=== PATIENT | female | born 1975 | race Caucasian/White ===

== ENCOUNTER 2021-06-07 20:14 | Emergency (ER) | payer BC, SELFPAY ==
[2021-06-07 20:15] VITALS: BP 117/61; PULSE 111; RESP 30; TEMP 36.6; O2SAT 100; BMI 25.9
--- NOTE | 2021-06-07 20:38 | EKG12_ITS ---
Test Reason : Blood Pressure : / mmHG Vent. Rate : 079 BPM Atrial Rate : 079 BPM P-R Int : 130 ms QRS Dur : 096 ms QT Int : 438 ms P-R-T Axes : 079 075 065 degrees QTc Int : 502 ms Sinus rhythm with Premature atrial complexes Prolonged QT Abnormal ECG Confirmed by MARCOS SHARMA, ANAMARIA ([id number]), digital editor EDER ORTIZ ([id number]) on 06/10/2021 9:23:30 AM Referred By: MANSI Confirmed By:ANAMARIA RODRÍGUEZ MD
--- NOTE | 2021-06-07 20:39 | EDS_ITS ---
HPI History of Present Illness Chief Complaint: Anxiety Informant: patient Onset/Context/Timing Onset: Today Context: sudden, gradual and activity on onset (Driving) Timing: Continuous Quality: Positive for - (Feels like I cannot breathe) Current Severity: Moderate Maximum Severity: Moderate Worsened by: Nothing Relieved by: Nothing Associated Symptoms Negative for cough Chest Pain: Positive for - (I cannot breathe, and since I cannot breathe it is making my chest hurt) Narrative Narrative: Patient states she started not feeling well in general and then having trouble breathing today while she was driving to her son's sports event. She has never had this before. She states there is some soreness but she has hard time localizing it. She denies any symptoms of angina. She denies having a history of anxiety or anything today that should have caused her to have a panic attack. She was seen at the [place] [facility] for this and they did some testing and discharged her saying this is anxiety and so she came here because she is still very symptomatic. She denies any history of PE or DVT. No recent leg pain or swelling. She is having contractions of both of her hands, and feeling tingly and weak all 4 extremities symmetrically. She states earlier she felt like my body was dying. PE Risk Factors: Negative for Cancer, OCP + Smoking + > 35, Prior DVT or PE, Recent immobilization, Recent surgery and Recent travel Recent Illness/Hospitalization: No PFSH PFSH Medical History no medical history no medical history Home Medications ibuprofen 2 tab PO PRN PRN 03/01/17 [History Last Taken Unknown] pantoprazole 20 mg PO DAILY 03/01/17 [History Last Taken 03/04/17 05:00] ibuprofen 600 mg PO Q6H PRN #60 tab 03/04/17 [Rx Last Taken Unknown] nitrofurantoin monohyd/m-cryst 100 mg PO BID #6 cap 03/04/17 [Rx Last Taken Unknown] ondansetron HCl 4 mg PO Q6H PRN PRN #10 tab 03/04/17 [Rx Last Taken Unknown] oxycodone-acetaminophen 1 - 2 tab PO Q8 PRN #28 tab 03/04/17 [Rx Last Taken Unknown] Allergy/AdvReac Type Severity Reaction Status Date / Time azithromycin [From Zithromax] Allergy Hives Verified 06/07/21 20:17 Social History Smoking Status: Current every day smoker tobacco type: cigarettes ROS ROS ED Constitutional Constitutional ED: Denies chills or fever(s) Eyes Eyes: Denies change in vision or diplopia ENT ENT ED: Denies rhinorrhea or sore throat Cardiovascular Cardiovascular: Reports as per HPI and chest pain; Denies palpitations Respiratory/Chest Respiratory/Chest: Reports dyspnea; Denies cough Gastrointestinal Gastrointestinal: Denies abdominal pain, diarrhea, nausea or vomiting Genitourinary Genitourinary ED: Denies dysuria or hematuria Musculoskeletal Musculoskeletal: Denies back pain or neck pain Integumentary Denies abscess or rash Neurologic Neurologic: Reports as per HPI, paresthesias and weakness; Denies headache(s) Psychiatric Psychiatric: Denies anxiety or suicidal thoughts EXAM Physical Exam Const Vital Signs: 06/07/21 20:15 Temperature 97.8 F Temperature Source Temporal Pulse Rate 111 H Respiratory Rate 30 H Blood Pressure 117/61 Blood Pressure Mean 79 Pulse Ox 100 Oxygen Delivery Method Room Air Positive well nourished and well developed General Appearance ED: well developed and NAD HEENT Reports moist mucous membranes normocephalic and atraumatic Eyes PERRL and EOMs intact bilaterally Neck full ROM and supple Resp normal respiratory effort and clear to auscultation bilaterally Cardio regular rate, regular rhythm and no murmurs Rate: tachycardic GI non-tender and non-distended Auscultation: normoactive bowel sounds Palpation: soft Back/Spine no CVA tenderness General Back: other FROM Extremity normal to inspection Extremity Narrative: Fingers and hands are in carpal contractures and she is tremulous when she raises her arms which she can do without trouble General Extremety ED: Negative for edema, pulses abnormal or tenderness General Extremity: Negative for edema or pulses abnormal Neuro oriented x3, CN's II-XII intact bilaterally and no sensory deficits noted Sensorium / Orientation: awake and alert Motor Exam: strength 5/5 throughout Psych mental status grossly normal, thought process normal and cooperative Psych Narrative: Appears very anxious. Tachypneic and mildly tachycardic. Soft-spoken, closing her eyes for much of her history. Skin no rashes or lesions noted and no wounds MDM MDM MDM Narrative Medical decision making narrative: EKG, chest x-ray, troponin, D-dimer all normal/within normal limits. This includes her mediastinum on her chest x-ray. Her bicarb is low at 18, and her potassium is a little low at 3.2. Her anion gap is within normal limits. I obtained an ABG to help differentiate which acid-base disorder she has. I interpret this as an acute respiratory alkalosis with compensation. I discussed with critical care Dr. Guillaume. He agrees with this and since the patient has been having symptoms for more than half of the day, renal compensation could be seen in the context. The patient was having pain all over so before this conversation I treated her with Toradol and she was given IV fluids and observed. Afterwards, she felt much better and her breathing was back to normal and she did not appear anxious. Her tachycardia resolved, her carpal spasms resolved, and her tingling resolved. I do think there is a component of anxiety here, but I think it was a result of feeling dyspneic. Dr. Guillaume suggested vocal cord dysfunction in the differential that could cause someone to feel dyspneic and mimics asthma commonly. This can be worked up as an outpatient, and the patient is comfortable going home and following up with her doctor. Her hypokalemia is likely due to the alkalosis and will self-correct when her pH corrects so I do not think she needs to have potassium replacement at this time. Lab Data Attestation: I reviewed the patient's lab results. Labs: Laboratory Results - last 24 hr 06/07/21 06/07/21 06/07/21 20:45 20:47 20:47 WBC 10.2 RBC 4.40 Hgb 13.9 Hct 39.5 MCV 89.8 MCH 31.6 MCHC 35.2 RDW Std Deviation 41.4 RDW Coeff of Ninfa 12.5 Plt Count 275 MPV 9.2 Immature Gran % (Auto) 0.200 Neut % (Auto) 69.8 Lymph % (Auto) 24.7 [place] % (Auto) 4.9 Eos % (Auto) 0.2 Baso % (Auto) 0.2 Absolute Neuts (auto) 7.1 Absolute Lymphs (auto) 2.51 Nucleated RBC % 0 D-Dimer Quant (PE/DVT) < 0.27 L Sodium Potassium Chloride Carbon Dioxide Anion Gap BUN Creatinine Estim Creat Clear Calc Est GFR (MDRD) Af Amer Est GFR (MDRD) Non-Af BUN/Creatinine Ratio Glucose Calcium Troponin I High Sens Serum , Qual NEGATIVE 06/07/21 20:47 WBC RBC Hgb Hct MCV MCH MCHC RDW Std Deviation RDW Coeff of Ninfa Plt Count MPV Immature Gran % (Auto) Neut % (Auto) Lymph % (Auto) [place] % (Auto) Eos % (Auto) Baso % (Auto) Absolute Neuts (auto) Absolute Lymphs (auto) Nucleated RBC % D-Dimer Quant (PE/DVT) Sodium 139 Potassium 3.2 L Chloride 111 H Carbon Dioxide 18.0 L Anion Gap 10 BUN 12 Creatinine 0.81 Estim Creat Clear Calc 79.75 Est GFR (MDRD) Af Amer 99 Est GFR (MDRD) Non-Af 82 BUN/Creatinine Ratio 14.9 Glucose 107 H Calcium 8.4 L Troponin I High Sens 20 Serum , Qual ABG Data ABG results: ABG 06/07/21 22:06 Specimen Type ART pH 7.54 H Bicarbonate Actual 18.0 L Total CO2 19 Base Excess -5 L O2 Saturation 99 O2 % 21 ABG pCO2 21.1 L ABG pO2 100 Radiography Chest X-Ray - ED: 1 View, Read by ED Physician, Normal, Heart, Lungs, Mediast inum, Bony Structures and No Acute Disease Diagnostic Testing: Clinical Impression(s) from Imaging Studies Chest X-Ray 06/07/21 20:45 IMPRESSION: Normal x-ray examination of the chest. Electronically Signed: Elijah Vieira MD ([place]) at 21:03 EDT Reading Location ID and State: [facility] / [place] , Service support , EKG Initial EKG: Attestation: I personally reviewed and interpreted this EKG as follows: Interpretation: No Acute Injury Pattern and Sinus Arrythmia (Otherwise normal EKG) Discharge Plan Triage Chief Complaint: Anxiety ED Provider: Dax Chacon Dx/Rx/DC Orders Clinical Impression: Acute dyspnea, Acute respiratory alkalosis, Hypokalemia, Anxiety Instructions: ED Dyspnea Prescriptions: No Action pantoprazole 20 MG tablet 20 mg PO DAILY RF: 0 ibuprofen 200 MG tablet 2 tab PO PRN PRN (Reason: Pain) RF: 0 oxycodone-acetaminophen 1 TABLET tablet 1 - 2 tab PO Q8 PRN (Reason: Pain) Qty: 28 RF: 0 ibuprofen 600 MG tablet 600 mg PO Q6H PRN (Reason: Pain) Qty: 60 RF: 1 ondansetron HCl 4 MG tablet 4 mg PO Q6H PRN PRN (Reason: Nausea) Qty: 10 RF: 1 nitrofurantoin monohyd/m-cryst 100 MG capsule 100 mg PO BID Qty: 6 RF: 0 Primary Care Provider: Dewey Grey Referrals: Dewey Grey MD [Primary Care Provider] - 3-5 Days Disposition Disposition: Home, Self Care
--- NOTE | 2021-06-07 20:45 | RAD_ITS ---
STUDY: X-RAY CHEST REASON FOR EXAM: Female, 45 years old. PRESENTS WITH ANXIETY, HYPERVENTILATING, HANDS IFTIKHAR. PT HAD JUST BEEN DISCHARGED FROM [place] FOR ANXIETY TECHNIQUE: AP COMPARISON: None. FINDINGS: The lungs are clear and expanded. There is no demonstrated pleural abnormality. Normal size heart. Normal mediastinum and trini. Normal visualized pulmonary arteries. Normal visualized aortic arch and descending thoracic aorta. Normal visualized thoracic spine. Normal visualized ribs, clavicles, and shoulders. There is no demonstrated abnormality of the visualized soft tissue structures of the upper abdomen. RAD/Chest 1 View (Portable) IMPRESSION: Normal x-ray examination of the chest. Electronically Signed: Elijah Vieira MD ([place]) at 21:03 EDT ,
[2021-06-07 20:52] LABS: Absolute Lymphocyte Count 2.51 X10^3/uL (0.83-4.51); Absolute Neutrophil Count 7.1 X10^3/uL (2.0-7.7); Basophil# 0.02 X10^3/uL; Basophil% 0.2 % (0-1); Eosinophil# 0.02 X10^3/uL; Eosinophils% 0.2 % (0-5); Hematocrit 39.5 % (37-47); Hemoglobin 13.9 g/dL (12.0-15.0); Lymphocyte # 2.51 X10^3/ul (0.83-4.51); Lymphocyte % 24.7 % (19-41); Mean Corp Hgb Conc 35.2 g/dL (32-36); Mean Corpuscular Hgb 31.6 pg (27.0-32.0); Mean Corpuscular Volume 89.8 fL (81-99); Mean Platelet Vol. 9.2 fl (6.2-12.0); Monocyte% 4.9 % (0-10); NRBC Flagged by Analyzer 0 % (0-5); Neutrophil # 7.09 X10^3/uL (2.7-7.7); Neutrophil % 69.8 % (47-70); Platelet Count 275 K/mm3 (150-450); RBC Distribution Width CV 12.5 % (11.6-14.6); RBC Distribution Width SD 41.4 fl (35.1-43.9); White Blood Count 10.2 K/mm3 (4.4-11.0)
[2021-06-07 21:08] LABS: Anion Gap 10 (5-15); BUN 12 mg/dL (7-18); BUN/Creat Ratio 14.9 RATIO (10-20); Calcium,Total 8.4 mg/dL (8.5-10.1); Chloride 111 mmol/L (98-107); Creatinine, Serum 0.81 mg/dL (0.55-1.02); EST Glomerular Filtration Rate 82 mL/min (>60); Est Glom Filt Rate - Afr Amer 99 mL/min (>60); Estimated Creatinine Clearance 79.75 ml/min; Glucose 107 mg/dL (74-106); Potassium 3.2 mmol/L (3.5-5.1); Sodium Level 139 mmol/L (136-145); Troponin-I HS 20 pg/mL (3.0-54.0)
[2021-06-07 21:26] LABS: D-Dimer Quantitative (DVT/PE) < 0.27 FEU/ug/m (0.27-0.49)
[2021-06-07 21:43] LABS: Internal QC Validated? YES +Cl - CLEAR BKGD; Pregnancy, Serum, hCG Quali. NEGATIVE Negative
[2021-06-07 22:10] LABS: Base Excess -5 mmol/L (-2 to +2); Blood Gas Specimen Type ART; FI02 21; PO2 100 mmHG (75-100); SO2 99 % (95-99); Total Carbon Dioxide 19 mmol/L; pCO2 21.1 mmHg (35-45); pH 7.54 (7.35-7.45)
[2021-06-07] MEDS: Ketorolac 30 MG/ML Syringe IV (23:35)
[2021-06-07 23:38] VITALS: BP 124/77; PULSE 84; RESP 19; O2SAT 97
== END 2021-06-07 23:39 | disposition home or self-care (01) ==
PROVIDERS: Emergency Provider Emergency Medicine; PCP Family Medicine; Visit Provider Emergency Medicine
DX: F41.9 Anxiety disorder, unspecified (principal); E87.6 Hypokalemia; E87.3 Alkalosis; F17.210 Nicotine dependence, cigarettes, uncomplicated; Z79.899 Other long term (current) drug therapy; R06.00 Dyspnea, unspecified
CPT/HCPCS: 36600; 71045; 80048; 82803; 84484; 84703; 85025; 85379; 93005; 96374; 99283; A4216